=== PATIENT | female | born 1960 | race Caucasian/White ===

== ENCOUNTER → 2024-11-16 07:47 | Outpatient (REF) | payer OTHER, SELFPAY | LOC: EMG 07:47 | PROVIDERS: ATTENDING PHYSICIAN Orthopaedic Surgery Hand Surgery; FAMILY PHYSICIAN Family Medicine | DX: G56.03 Carpal tunnel syndrome, bilateral upper limbs (principal) | CPT/HCPCS: 95886; 95911 ==

== ENCOUNTER → 2025-01-25 08:07 | Outpatient (REF) | payer OTHER, SELFPAY ==
[2025-01-25 09:54] LABS: % Basophils 0.6 % (0-2); % Immature Granulocytes 0.6 % (0-0.5); % Lymphocytes 28.4 % (20.5-51.1); % Neutrophils 62.4 % (42.2-75.2); Absolute Basophils 0.1 10^3/uL (0-0.2); Absolute Eosinophils 0.2 10^3/uL (0-0.7); Absolute Immature Granulocytes 0.1 10^3/uL (0-0.05); Absolute Lymphocytes 2.3 10^3/uL (1.2-3.4); Absolute Monocytes 0.5 10^3/uL (0.1-0.6); Hematocrit 41.9 % (37.0-47.0); Hemoglobin 14.2 g/dL (12.0-16.0); Mean Corp Hgb Conc. 33.9 g/dL (33.0-37.0); Mean Corpuscular Hgb 29.8 pg (27.0-31.0); Mean Platelet Volume 9.2 fL (7.4-10.4); Nucleated Red Blood Cells % 0 %; Platelet Count 285 10^3/uL (130-400); Red Blood Cell Count 4.76 10^6/uL (4.20-5.40); Red Cell Dist. Width 13.8 % (11.5-14.5)
[2025-01-25 10:12] LABS: Blood Urea Nitrogen 10 mg/dl (7-17); Calcium 10.8 mg/dl (8.4-10.2); Carbon Dioxide 28 mmol/L (22-30); Chloride 104 mmol/L (98-107); Glucose 200 mg/dl (70-99); Potassium 4.3 mmol/L (3.5-5.1); Sodium 141 mmol/L (135-145); eGFR > 60.00
== END ==
LOC: OLAB 08:07
PROVIDERS: ATTENDING PHYSICIAN Orthopaedic Surgery Hand Surgery
DX: Z01.818 Encounter for other preprocedural examination (principal)
CPT/HCPCS: 80048; 85025; 93005

== ENCOUNTER 2025-02-15 06:00 | Day surgery (SDC) | payer OTHER, SELFPAY ==
[2025-02-15] MEDS: CELEBREX 200 MG PO (06:28)
[2025-02-15] MEDS: TYLENOL 1000 MG PO (06:28)
[2025-02-15 06:29] VITALS: BMI 32.1
[2025-02-15 06:30] VITALS: BMI 32.1
[2025-02-15 06:31] VITALS: BP 127/72
[2025-02-15 06:41] LABS: Glucose - Point of Care 135 mg/dl (70-99)
[2025-02-15] MEDS: NORMOSOL-R/PLASMALYTE-A 1000 IV (06:44)
[2025-02-15 08:31] VITALS: BP 127/72; BP 136/60
[2025-02-15 08:45] VITALS: BP 133/69
[2025-02-15 08:47] LABS: Glucose - Point of Care 152 mg/dl (70-99)
[2025-02-15 09:00] VITALS: BP 134/70
[2025-02-15 09:15] VITALS: BP 138/70
[2025-02-15 09:45] VITALS: BP 156/77
== END 2025-02-15 10:20 | disposition home or self-care (01) ==
LOC: SDS 06:00
PROVIDERS: ATTENDING PHYSICIAN Orthopaedic Surgery Hand Surgery
DX: G56.01 Carpal tunnel syndrome, right upper limb (principal)
CPT/HCPCS: 64721; 82962

== ENCOUNTER 2025-08-31 11:46 | Emergency (ER) | payer OTHER, SELFPAY ==
[2025-08-31 12:00] VITALS: BP 134/77
--- NOTE | 2025-08-31 12:59 | ED.GENMED ---
History of Present Illness
General
Chief Complaint: Foreign Body Ingestion
Time Seen by Provider: 08/31/25 11:58
History of Present Illness
History of Present Illness:
64-year-old female with history of autism, dementia, ADHD, diabetes presenting for concern of accidental ingestion of her dentures. Patient reports she went to bed last night with her partial dentures and when she woke up this morning could not
find them. She is concerned that she may have swallowed them. Denies any significant chest pain or difficulty breathing. Denies abdominal pain. Denies any additional medical complaints
Past History
Past History
ED Past Medical History: Other (IVs, hypertension, hyperlipidemia, MS variant)
Social History
Tobacco: Non-smoker
Alcohol: Occasional
Family History
Family History: Adopted
Phy Exam
Physical Exam
Physical Exam:
General: Well-appearing, no clinical signs of dehydration, nontoxic and in no acute distress
HEENT: protecting airway
Neck: appears supple
CV: Normal heart rate, regular rhythm
Resp: No accessory muscle use, no increased work of breathing, lungs clear to auscultation bilaterally
Abd: Soft and non-distended, no tenderness to palpation
Extremities: No deformities, no swelling
Neuro: alert, no focal neurologic deficit
: deferred
Rectal: deferred
Psych: Normal affect
Skin: Intact
Course
Orders/Labs/Results
Orders:
Orders
08/31/25 12:03
Obstruct Series W/PA Chest [CR Obstruct Series W/pa Chest] Urgent
Comment:
Reason For Exam: swallowed foreign body, dentures
Vital Signs
Initial and Last Documented VS:
Initial Vital Signs
Temp Pulse Resp Pulse Ox
98.1 F 51 18 96
08/31/25 11:50 08/31/25 11:50 08/31/25 11:50 08/31/25 11:50
Last Documented Vital Signs
Temp Pulse Resp BP Pulse Ox
98.1 F 51 18 134/77 96
08/31/25 11:50 08/31/25 11:50 08/31/25 11:50 08/31/25 12:00 08/31/25 11:50
MDM/Problems Addressed
MDM/Problems Addressed:
64-year-old female with history of autism, dementia, ADHD, diabetes presenting for concern of ingested foreign body, dentures. Vital signs normal.
On exam patient is resting comfortably, no acute distress or discomfort. Unremarkable cardiac, pulmonary, abdominal exam. No airway compromise, no globus sensation. Suddenly present concern for obstructing foreign body. Will obtain x-ray imaging
to assess for any sign of potentially swallowed foreign body
13:00- X-ray of the chest and abdomen without any evidence of foreign body. At this time given that patient continues to protect airway, feel stable for discharge with expectant management. However, strict return precautions communicated to
patient verbalized understanding
*Pulse Oximetry
SaO2: 96
Oxygen Mode of Delivery: Room air
Patient hypoxic: no
*Critical Care Note
Total Time (30-74mins, 75-104mins- exclusive of procedures): Not Applicable
ED Attending Note
-
Portions of this chart may have been created with voice recognition software.� Occasional wrong word or��sound alike� substitutions may have occurred due to the inherent limitations of voice recognition software.
Discharge Plan
Departure
Prescriptions:
No Action
acetaminophen [Tylenol Extra Strength] 500 MG tablet
1,000 mg PO PRN PRN (Reason: pain)
multivitamin Tablet
1 tab PO DAILY
albuterol sulfate 0.63 mg/3 mL Solution For Nebulization
0.63 mg INHALATION Q4H PRN (Reason: asthma )
azelastine 0.05 % Drops
1 drp OPHTHALMIC (EYE) BID
ascorbic acid (vitamin C) [Vitamin C] 1,000 mg Tablet
1 g PO DAILY
aspirin 325 mg Tablet
325 mg PO DAILY
ondansetron HCl [Zofran] 4 mg Tablet
4 mg PO Q6H PRN (Reason: N/V)
meclizine 12.5 mg Tablet
12.5 mg PO TID PRN (Reason: vertigo)
spironolactone 25 mg Tablet
25 mg PO DAILY
pravastatin 80 mg Tablet
80 mg PO HS
pantoprazole [Protonix] 40 mg Tablet,Delayed Release (Dr/Ec)
40 mg PO DAILY
metformin 1,000 mg Tablet
1,000 mg PO BID
gabapentin [Neurontin] 300 mg Capsule
300 mg PO TID
montelukast 10 mg Tablet
10 mg PO HS
ergocalciferol (vitamin D2) [Vitamin D2] 1,250 mcg (50,000 unit) Capsule
1,250 mcg PO WE
fluticasone propion-salmeterol [Advair Diskus] 100-50 mcg/dose Blister With Device
1 inh INHALATION BID
fluticasone propionate [Flonase] 50 mcg/actuation [place],Suspension
1 spray INTRANASAL BID
dicyclomine 10 mg Capsule
10 mg PO TID
ezetimibe [Zetia] 10 mg Tablet
10 mg PO HS
insulin aspart U-100 100 unit/mL (3 mL) Insulin Pen
1 sliding scale dose SC AC
aripiprazole [Abilify] 5 mg Tablet
5 mg PO HS
duloxetine [Cymbalta] 30 mg Capsule,Delayed Release(Dr/Ec)
30 mg PO HS
tizanidine 4 mg Capsule
4 mg PO BID PRN (Reason: muscle spasms)
amlodipine-benazepril 10-40 mg Capsule
1 cap PO DAILY
insulin degludec [Tresiba FlexTouch U-100] 100 unit/mL (3 mL) Insulin Pen
100 unit SC HS
Jardiance 25 mg Tablet
25 mg PO DAILY
Mounjaro 7.5 mg/0.5 mL Pen Injector
7.5 mg SC WE
ibuprofen 200 mg Tablet
200 mg PO Q6H PRN (Reason: pain)
Interventions
Interventions:
*Risk Screen - Suicide Last Done: 08/31/25 11:50
*General Assessment Last Done: 08/31/25 11:50
*Neglect/Abuse Screening Last Done: 08/31/25 11:50
*ED COVID-19 Vaccine History Last Done: 08/31/25 11:50
*ED Influenza Vaccine History Last Done: 08/31/25 11:50
EN-Kvtift-Lcosxpvskl Assessment Last Done: 08/31/25 12:39
ED- Pulmonary Assessment Last Done: 08/31/25 12:39
ED-EENT Assessment Last Done: 08/31/25 12:39
Discharge Date and Time
Print Language: SAMI
== END 2025-08-31 14:36 | disposition home or self-care (01) ==
LOC: EMR 11:46
PROVIDERS: EMERGENCY PHYSICIAN Student in an Organized Health Care Education/Training Program; FAMILY PHYSICIAN Family Medicine
DX: T18.9XXA Foreign body of alimentary tract, part unspecified, initial encounter (principal); F84.0 Autistic disorder; F03.90 Unspecified dementia, unspecified severity, without behavioral disturbance, psychotic disturbance, mood disturbance, and anxiety; E11.9 Type 2 diabetes mellitus without complications; W44.8XXA Other foreign body entering into or through a natural orifice, initial encounter
CPT/HCPCS: 99283; 74022